=== PATIENT | female | born 1945 | race Caucasian/White ===

== ENCOUNTER → 2017-08-31 | Outpatient (CLI) | payer OTHER | LOC: BHLMT 14:00 | PROVIDERS: ATTEND Nurse Practitioner Family | DX: R55 Syncope and collapse (principal); R00.0 Tachycardia, unspecified; I44.7 Left bundle-branch block, unspecified ==

== ENCOUNTER → 2017-09-09 | Outpatient (CLI) | payer OTHER | LOC: BHLMT 14:45 | PROVIDERS: ATTEND Internal Medicine Cardiovascular Disease | DX: R42 Dizziness and giddiness (principal) ==